=== PATIENT | male | born 2000 | race African-American/Black ===

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

== ENCOUNTER 2021-05-27 07:18 | Emergency (ER) | payer SELFPAY ==
[~2021-05-27] VITALS: Ht 180.3 cm; Wt 71.0 kg
[~2021-05-27 07:18] MED LIST: CLIN300C12 PO
[2021-05-27 07:42] VITALS: BP 120/67
[2021-05-27] MEDS ORDERED: ACETAMINOPHEN 500MG TABLET PO ONE (08:15)
[2021-05-27] MEDS ORDERED: LIDOCAINE HCL 1% 20ML VIAL (Pyxis) INJ INFIL ONE (08:15)
[2021-05-27] MEDS ORDERED: ACETAMINOPHEN 500MG TABLET PO NR (08:30)
[2021-05-27] MEDS ORDERED: LIDOCAINE HCL/PF 1% 10 MG/ML 5ML VIAL INFIL NR ×2 (08:30→09:45)
== END 2021-05-27 09:58 | disposition home or self-care (01) ==
LOC: ER 07:18
DX: S61.211A Laceration without foreign body of left index finger without damage to nail, initial encounter (principal); W45.8XXA Other foreign body or object entering through skin, initial encounter; Y93.89 Activity, other specified; Y92.89 Other specified places as the place of occurrence of the external cause; Y99.8 Other external cause status
CPT/HCPCS: 12002; 99283; J3490; Z7610

== ENCOUNTER 2021-06-05 12:23 | Emergency (ER) | payer SELFPAY ==
[~2021-06-05] VITALS: Ht 180.3 cm; Wt 68.0 kg
[2021-06-05 12:39] VITALS: BP 121/56
== END 2021-06-05 13:40 | disposition home or self-care (01) ==
LOC: ER 12:23
DX: Z48.00 Encounter for change or removal of nonsurgical wound dressing (principal)
CPT/HCPCS: 99281

== ENCOUNTER 2021-06-11 12:27 | Emergency (ER) | payer MEDICAID ==
[~2021-06-11] VITALS: Ht 180.3 cm; Wt 68.0 kg
[2021-06-11 12:36] VITALS: BP 132/55
== END 2021-06-11 12:55 | disposition home or self-care (01) ==
LOC: ER 12:27
DX: Z48.02 Encounter for removal of sutures (principal)
CPT/HCPCS: 99281

== ENCOUNTER 2022-03-06 13:20 | Emergency (ER) | payer SELFPAY ==
[~2022-03-06] VITALS: Ht 172.7 cm; Wt 79.0 kg
[~2022-03-06 13:20] MED LIST changes: +CLIN-194 PO; -CLIN300C12 PO
[2022-03-06 13:27] VITALS: BP 133/72
== END 2022-03-06 18:15 | disposition home or self-care (01) ==
LOC: ER 14:01
DX: S92.911A Unspecified fracture of right toe(s), initial encounter for closed fracture (principal); W22.8XXA Striking against or struck by other objects, initial encounter; Y93.02 Activity, running; Y92.89 Other specified places as the place of occurrence of the external cause; Y99.8 Other external cause status
CPT/HCPCS: 73620; 99283

== ENCOUNTER 2022-03-11 13:32 | Emergency (ER) | payer SELFPAY ==
[~2022-03-11] VITALS: Ht 180.3 cm; Wt 70.0 kg
[2022-03-11 16:15] VITALS: BP 110/71
== END 2022-03-11 16:16 | disposition home or self-care (01) ==
LOC: ER 13:32
DX: Z09 Encounter for follow-up examination after completed treatment for conditions other than malignant neoplasm (principal); Z87.81 Personal history of (healed) traumatic fracture
CPT/HCPCS: 99281